=== PATIENT | male | born 1985 | race Caucasian/White ===

== ENCOUNTER 2018-05-31 16:50 | Emergency (ER) | payer MEDICARE, OTHER ==
[2018-05-31] MEDS ORDERED: MOTRIN 400 MG PO ONE (17:09)
--- NOTE | 2018-05-31 17:13 | ERPHSYRPT ---
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 I was told that i fractured one foot and strained the other. Now, my toes really hurt when I walk." Triage Nursing Assessment: Pt alert and oriented X 3, skin pwd Pt ambulates with limps. Pt feet slightly swollen, no bruising noted. Pt speakin clear full sentences. Hx Tetanus, Diphtheria Vaccination/Date Given: Yes Hx Influenza Vaccination/Date Given: Yes Hx Pneumococcal Vaccination/Date Given: No Immunizations Up to Date: Yes <JUICE MEDINA - Last Filed: 05/31/18 18:47> <KYLE TIPTON - Last Filed: 05/31/18 19:36> - History of Present Illness Time Seen by Provider: 05/31/18 17:11 Physician History: mild to mod off and on positional ache of both feet for weeks with basic training, no bleeding, pt is ambulatory, no fever (JUICE MEDINA) Allergies/Adverse Reactions: penicillin G Allergy (Verified 10/01/14 22:57) Hives - Review of Systems Constitutional: No Fever Respiratory: No Dyspnea Cardiac: No Chest Pain Abdominal/Gastrointestinal: No Abdominal Pain Musculoskeletal: Joint Pain, No Back Pain, No Neck Pain Skin: No Rash Neurological: No Dizziness <JUICE MEDINA - Last Filed: 05/31/18 18:47> - Past Medical History Pertinent Past Medical History: Yes Neurological History: No Pertinent History ENT History: No Pertinent History Cardiac History: Arrhythmia Respiratory History: Asthma Endocrine Medical History: No Pertinent History Musculoskeletal History: No Pertinent History GI Medical History: No Pertinent History History: No Pertinent History Psycho-Social History: No Pertinent History Male Reproductive Disorders: No Pertinent History Other Medical History: WPW - Past Surgical History Past Surgical History: Yes Neuro Surgical History: No Pertinent History Cardiac: No Pertinent History Respiratory: No Pertinent History Gastrointestinal: No Pertinent History Genitourinary: No Pertinent History Musculoskeletal: No Pertinent History Male Surgical History: No Pertinent History - Social History Smoking Status: Current every day smoker How long have you smoked: 18 Exposure to second hand smoke: Yes Drug Use: none Patient Lives Alone: No <JUICE MEDINA - Last Filed: 05/31/18 18:47> - Physical Exam General Appearance: no apparent distress Extremity Exam: normal range of motion, other (sen and pulses intact, nontender knees and ankles) Neurologic Exam: alert, oriented x 3, cooperative Skin Exam: warm, dry, No rash SpO2 Interpretation: normal SpO2: 100 Oxygen Delivery: Room Air <JUICE MEDINA - Last Filed: 05/31/18 18:47> - Nursing Vital Signs Nursing Vital Signs: Initial Vital Signs Temperature 99.0 F 05/31/18 16:54 Pulse Rate 79 05/31/18 16:54 Respiratory Rate 16 05/31/18 16:54 Blood Pressure 135/80 05/31/18 16:54 O2 Sat by Pulse Oximetry 100 05/31/18 16:54 Pain Scale Pain Intensity 3 Ordered Tests: Active Orders 24 hr Category Date Time Status Splint STAT Care 05/31/18 19:29 Active FOOT (MINIMUM 3 VIEWS) Stat Exams 05/31/18 19:11 Taken FOOT (MINIMUM 3 VIEWS) Stat Exams 05/31/18 19:11 Taken Medication Summary Discontinued Medications Generic Name Dose Route Start Last Admin Trade Name Gustavoq PRN Reason Stop Dose Admin Ibuprofen 400 mg 05/31/18 17:09 05/31/18 17:17 Motrin 400 Mg PO 05/31/18 17:10 400 mg STAT ONE Administration Ibuprofen Confirm 05/31/18 17:16 Motrin 400 Mg Administered 05/31/18 17:17 Dose 400 mg .ROUTE .STK-MED ONE <JUICE MEDINA - Last Filed: 05/31/18 18:47> <KYLE TIPTON - Last Filed: 05/31/18 19:36> - Progress Progress Note: 05/31/18 18:[address] Tipton at 19:00 (JUICE MEDINA) 05/31/18 19:33 Pt has a 3rd bilateral metatarsal fracture. Pt will be splinted and will be referred to orthopedics, Dr Perla. (KYLE TIPTON) <JUICE MEDINA - Last Filed: 05/31/18 18:47> - Departure Time of Disposition: 19:35 Departure Disposition: Home Critical Care Time: No <KYLE TIPTON - Last Filed: 05/31/18 19:36> - Departure Clinical Impression: Metatarsal bone fracture Qualifiers: Encounter type: initial encounter Metatarsal bone: third Fracture type: closed Fracture alignment: nondisplaced Laterality: unspecified laterality Qualified Code(s): S92.336A - Nondisplaced fracture of third metatarsal bone, unspecified foot, initial encounter for closed fracture Condition: Stable Referrals: MORGAN PERLA [ACTIVE STAFF] - Instructions: Foot Fracture (DC) Additional Instructions: Call Dr Perla, orthopedics for additional recommendations. Prescriptions: Ketorolac Tromethamine [Toradol] 10 mg PO QID PRN #20 tablet PRN Reason: Pain
[2018-05-31] MEDS ORDERED: MOTRIN 400 MG ONE (17:16)
[2018-05-31 20:03] VITALS: BP 117/73; PULSE 76; O2SAT 98
--- NOTE | 2018-06-01 15:00 | XRAY ---
Exam: 3 views of the right foot from 05/31/2018. Comparison: None. Indication: Bilateral foot pain from basic training 14 weeks ago. Findings: AP, oblique, and lateral radiographs of the right foot were obtained. There appears to be a healing transverse fracture of the distal right third metatarsal near the metatarsal neck. Solid bone union is not seen as of yet indicating that healing is not complete. There is about 3 mm medial displacement of the distal fractured fragment on the AP image. No other acute fracture or dislocation is seen. There is a tiny posterior calcaneal enthesophyte. No radiopaque soft tissue foreign body is seen. The plantar arch appears unremarkable. Impression: 1. Healing, mildly displaced, transverse fracture through the distal right third metatarsal shaft near the metatarsal neck. Although I see some callus, I do not see solid bone union as of yet indicating that bone healing is not complete.
--- NOTE | 2018-06-01 15:08 | XRAY ---
Exam: 3 views of the left foot from 05/31/2018. Comparison: None. Indication: Bilateral foot pain training 14 weeks ago. Findings: AP, oblique, and lateral radiographs of the left foot were obtained. I note a healing minimally impacted fracture of the midshaft of the right third metatarsal with surrounding callus formation. There is about 2 mm medial displacement of the major distal fractured third metatarsal element with respect to the proximal shaft of the third metatarsal on the AP image. Healing is not complete as of yet, as I see no solid bone union. In addition, there is a mildly impacted healing fracture through the base of the distal right fourth metatarsal with about 2.5 mm displacement. Surrounding callus formation is seen. Bone union does not appear complete at this level as well. I see no other acute fracture or dislocation of the left foot. The tarsal-metatarsal junctions align correctly. The plantar arch appears normal. No radiopaque soft tissue foreign body is seen. Impression: 1. Healing, mildly displaced and impacted fracture of the midshaft of the left third metatarsal. Although there is some surrounding callus formation, solid bone union is not complete indicating that healing is not complete. 2. In addition, there is a healing, mildly displaced and impacted transverse fracture across the base of the distal left fourth metatarsal head. Bone union is not complete at this site as well.
== END 2018-05-31 20:04 | disposition home or self-care (01) ==
LOC: ED 16:50
DX: S92.33 Fracture of third metatarsal bone (principal); M79.89 Other specified soft tissue disorders; X50.0XXA Overexertion from strenuous movement or load, initial encounter; X50.9XXA Other and unspecified overexertion or strenuous movements or postures, initial encounter; X50.3XXA Overexertion from repetitive movements, initial encounter; Y93.89 Activity, other specified; Y99.1 Military activity
CPT/HCPCS: 29515; 73630; 99284; A9270-GY